=== PATIENT | male | born 1980 | race Caucasian/White ===

== ENCOUNTER 2017-03-01 22:01 | Emergency (ER) | payer OTHER ==
[~2017-03-01] VITALS: Ht 182.9 cm; Wt 93.0 kg
[~2017-03-01 22:01] MED LIST: AMOXICILLIN500 M1 PO; BACLOFEN10 MG PO; EAR DROPS15 M2 OT; FLOMAX0.4 M1 PO; NO MEDICATIONS; PERCOCET 7.5-31 EACH PO; PHENERGAN SUPP25 M1 PR; PHENERGAN25 M1 PO; ULTRAM PO
[2017-03-01] MEDS ORDERED: IBUPROFEN (22:20)
[2017-03-01 23:48] LABS: URINE SOURCE CLEAN CATCH
[2017-03-01 23:54] LABS: URINE APPEARANCE CLEAR; URINE BILIRUBIN NEG (NEG); URINE BLOOD NEG (NEG); URINE COLOR YELLOW; URINE GLUCOSE NEG (NORM); URINE KETONE NEG (NEG); URINE LEUKOCYTE ESTERASE NEG (NEG); URINE NITRATE NEG (NEG); URINE PROTEIN NEG (NEG); URINE SPECIFIC GRAVITY >=1.030 (1.003-1.035); URINE UROBILINOGEN 0.2 MG/DL (NORM)
[2017-03-01 23:58] LABS: MICRO INDICATED? NO
== END 2017-03-02 00:19 | disposition home or self-care (01) ==
LOC: SED 22:01
PROVIDERS: Emergency Medicine
DX: S16.1XXA Strain of muscle, fascia and tendon at neck level, initial encounter (principal); N45.1 Epididymitis; M54.12 Radiculopathy, cervical region; Z91.040 Latex allergy status; V49.40XA Driver injured in collision with unspecified motor vehicles in traffic accident, initial encounter
CPT/HCPCS: 81003; 99284